=== PATIENT | male | born 1965 | race Caucasian/White ===

== ENCOUNTER 2016-04-19 05:21 | Inpatient (IN) | payer OTHER ==
[~2016-04-19] VITALS: Ht 195.6 cm; Wt 169.8 kg
--- OUTSIDE RECORDS SUMMARY | 2016-04-19 05:30 | XMS REPORT ---
Author Author NERIS OCHOA Organization [employer] Address Unknown Phone Unavailable Care Team Providers Care Bridges Supervisor Name Role Phone NERIS OCHOA CP Unavailable Allergies, Adverse Reactions, Alerts Substance Reaction Event Type N.K.D.A. Info Not Available Non Drug Allergy Problems Problem Type Condition Code Onset Dates Condition Status Assessment Puncture wound T14.8 Active Medications Medication Code System Code Instructions Start Date End Date Status Dosage Keflex [facility] [place]NOTE 2] [id number] 250 MG Orally Four times a day Jan 25, 2015 Feb 04, 2015 1 capsule Ibuprofen NDC 0 not defined Procedures Procedure Coding System Code Date TDAP (BOOSTRIX) CPT-4 22921 Jan 25, 2015 SINGLE IMMUNIZATION ADMIN CPT-4 71315 Jan 25, 2015 Office Visit, Est Pt., Level 3 CPT-4 21693 Jan 25, 2015 Vital Signs Date/Time: Jan 25, 2015 Temperature 97.6 F Weight 341.8 lbs Height 77 in BMI 40.53 Index Blood Pressure Diastolic 88 mmHg Blood Pressure Systolic 134 mmHg Cardiac Monitoring Heart Rate 60 bpm Results No Known Results Immunizations Vaccine Administration Date TDAP (BOOSTRIX) Jan 25, 2015 Summary Purpose [employer] Submission
[2016-04-19 06:14] LABS: BASOPHILS % (AUTO) 0 % (0-10); EOSINOPHILS % (AUTO) 1 % (0-10); LYMPHOCYTES # (AUTO) 0.5 X 10^3 (1.0-4.0); LYMPHOCYTES % (AUTO) 16 % (12-44); MEAN CORPUSCULAR HEMOGLOBIN 34 PG (25-34); MEAN CORPUSCULAR HGB CONC 35 G/DL (32-36); MEAN CORPUSCULAR VOLUME 96 FL (80-99); MONOCYTES % (AUTO) 1 % (0-12); NEUTROPHILS # (AUTO) 2.4 X 10^3 (1.8-7.8); NEUTROPHILS % (AUTO) 82 % (42-75); PLATELET COUNT 163 10^3/uL (130-400); RED BLOOD COUNT 4.72 10^6/uL (4.35-5.85); RED CELL DISTRIBUTION WIDTH 12.6 % (10.0-14.5); WHITE BLOOD COUNT 2.9 10^3/uL (4.3-11.0)
[2016-04-19] MEDS ORDERED: ONDANSETRON 4 MG/2 ML (SDV) Z0FRAN IVP ONE (06:15)
[2016-04-19] MEDS ORDERED: NS IV 1000 ML 1,000 ML IV SCH ×3 (06:15→09:45)
--- NOTE | 2016-04-19 06:18 | ED General ---
General Chief Complaint: Fever-Adult/Adol Stated Complaint: CHILLS FINGER INJ Nursing Triage Note: Pt c/o chills starting this morning upon arrival. During initial exam, pt begin c/o abd pain and begins dry heaving. No emesis noted. Nursing Sepsis Screen: Possible Sepsis Risk Source of Information: Patient, Family Exam Limitations: No Limitations History of Present Illness Time Seen by Provider: 06:14 Initial Comments This 50-year-old white male presents with complaint of chills and fever that began this morning with associated nausea and vomiting. The patient denies associated headache, stiff neck, productive cough, hematemesis, associated diarrhea, dysuria or frequency. His past medical history is essentially unremarkable. Patient has been on Rodriguez diet for the last week. At this point the patient is complaining primarily of his chills and moderate nausea. There is no localized abdominal pain. Allergies and Home Medications Allergies Coded Allergies: No Known Drug Allergies (Unverified , 04/19/16) Home Medications No Active Prescriptions or Reported Meds Constitutional: chills fever malaise EENTM: No ear pain, No throat pain, No vision loss Respiratory: No cough, No short of breath Cardiovascular: No chest pain Gastrointestinal: abdominal painNo diarrhea, nausea vomiting Genitourinary: No dysuria, No frequency Musculoskeletal: No back pain, No joint pain Skin: No rash Psychiatric/Neurological: No Symptoms Reported Hematologic/Lymphatic: No Symptoms Reported Immunological/Allergic: no symptoms reported Past Tfjcpyj-Rorvmk-Bwuwsa Hx Patient Social History Alcohol Use: Denies Use Recreational Drug Use: No Smoking Status: Never a Smoker Recent Foreign Travel: No Contact w/Someone Who Travel: No Recent Infectious Disease Expo: No Recent Hopitalizations: No Seasonal Allergies Seasonal Allergies: No Surgeries HX Surgeries: No Respiratory Hx Respiratory Disorders: No Cardiovascular Hx Cardiac Disorders: No Neurological Hx Neurological Disorders: No Reproductive System Hx Reproductive Disorders: No Genitourinary Hx Genitourinary Disorders: No Gastrointestinal Hx Gastrointestinal Disorders: No Musculoskeletal Hx Musculoskeletal Disorders: No Endocrine Hx Endocrine Disorders: No HEENT HX ENT Disorders: No Cancer Hx Cancer: No Psychosocial Hx Psychiatric Problems: No Integumentary HX Skin/Integumentary Disorder: No Blood Transfusions Hx Blood Disorders: No Reviewed Nursing Assessment Reviewed/Agree w Nursing PMH: Yes Physical Exam Vital Signs Vital Sign - Last 12Hours 04/19/16 05:33 Temp 102.5 Pulse 118 Resp 18 B/P 124/87 Pulse Ox 97 O2 Delivery Room Air Capillary Refill : Less Than 3 Seconds General Appearance: No Apparent Distress WD/WN Eyes: Bilateral Eye Normal Inspection, Bilateral Eye PERRL HEENT: Normal ENT Inspection Neck: Normal Inspection Respiratory: Chest Non Tender Lungs Clear Normal Breath Sounds Cardiovascular: Regular Rate, Rhythm No Edema No Gallop No Murmur Gastrointestinal: Normal Bowel Sounds Soft Tenderness (there is slight diffuse tenderness to palpation of the abdomen. No rebound was noted.) Neurologic/Psychiatric: Oriented x3 No Motor/Sensory Deficits Skin: Normal Color Warm/Dry Progress/Results/Core Measures Results/Orders Lab Results Laboratory Tests Test 04/19/16 05:49 04/19/16 08:04 04/19/16 08:50 Range/Units Alanine Aminotransferase (ALT/SGPT) 26 0-55 U/L Albumin 4.3 3.2-4.5 G/DL Alkaline Phosphatase 54 40-136 U/L Anion Gap 14 5-14 MMOL/L Aspartate Amino Transf (AST/SGOT) 23 5-34 U/L BUN/Creatinine Ratio 23 Basophils # (Auto) 0.0 0.0-0.1 10^3/uL Basophils (%) (Auto) 0 0-10 % Blood Urea Nitrogen 21 H 7-18 MG/DL Calcium Level 9.3 8.5-10.1 MG/DL Carbon Dioxide Level 18 L 21-32 MMOL/L Chloride Level 108 H 98-107 MMOL/L Creatinine 0.91 0.60-1.30 MG/DL Eosinophils # (Auto) 0.0 0.0-0.3 10^3/uL Eosinophils (%) (Auto) 1 0-10 % Estimat Glomerular Filtration Rate > 60 Glucose Level 98 70-105 MG/DL Hematocrit 45 40-54 % Hemoglobin 15.8 13.3-17.7 G/DL Lipase 20 8-78 U/L Lymphocytes # (Auto) 0.5 L 1.0-4.0 X 10^3 Lymphocytes (%) (Auto) 16 12-44 % Mean Corpuscular Hemoglobin 34 25-34 PG Mean Corpuscular Hemoglobin Concent 35 32-36 G/DL Mean Corpuscular Volume 96 80-99 FL Mean Platelet Volume 10.0 7.4-10.4 FL Monocytes # (Auto) 0.0 0.0-1.0 X 10^3 Monocytes (%) (Auto) 1 0-12 % Neutrophils # (Auto) 2.4 1.8-7.8 X 10^3 Neutrophils (%) (Auto) 82 H 42-75 % Platelet Count 163 130-400 10^3/uL Potassium Level 4.0 3.6-5.0 MMOL/L Red Blood Count 4.72 4.35-5.85 10^6/uL Red Cell Distribution Width 12.6 10.0-14.5 % Sodium Level 140 135-145 MMOL/L Total Bilirubin 1.1 H 0.1-1.0 MG/DL Total Protein 7.2 6.4-8.2 G/DL White Blood Count 2.9 L 4.3-11.0 10^3/uL Lactic Acid Level 1.23 0.50-2.00 MMOL/L Urine Bacteria NEGATIVE /HPF Urine Bilirubin NEGATIVE NEGATIVE Urine Casts PRESENT /LPF Urine Clarity VERY CLOUDY H Urine Color YELLOW Urine Crystals NONE /LPF Urine Culture Indicated NO Urine Glucose (UA) NEGATIVE NEGATIVE Urine Hyaline Casts 5-10 H /LPF Urine Ketones 2+ H NEGATIVE Urine Leukocyte Esterase NEGATIVE NEGATIVE Urine Mucus SMALL H /LPF Urine Nitrite NEGATIVE NEGATIVE Urine Protein 2+ H NEGATIVE Urine RBC 2-5 H /HPF Urine RBC (Auto) 3+ H NEGATIVE Urine Specific [place] 1.015 L 1.016-1.022 Urine Urobilinogen NORMAL NORMAL MG/DL Urine WBC NONE /HPF Urine pH 5 5-9 Micro Results Microbiology 04/19/16 Influenza Types A,B Antigen (JAMAAL) - Final, Complete My Orders Orders-MEJIA LOYA MD Cbc With Automated Diff (04/19/16 06:07) Comprehensive Metabolic Panel (04/19/16 06:07) Lipase (04/19/16 06:07) Ua Culture If Indicated (04/19/16 06:07) Ns Iv 1000 Ml (Sodium Chloride 0.9%) (04/19/16 06:15) Ondansetron Injection (Zofran Injectio (04/19/16 06:15) Saline Lock/Iv-Start (04/19/16 06:14) Influenza A And B Antigens (04/19/16 06:39) Ct Abdomen/Pelvis W (04/19/16 07:02) Blood Culture (04/19/16 07:02) Lactic Acid Analyzer (04/19/16 07:02) Fentanyl Injection (Sublimaze Injection (04/19/16 07:15) Ns Iv 1000 Ml (Sodium Chloride 0.9%) (04/19/16 07:15) Acetaminophen Tablet (Tylenol Tablet) (04/19/16 07:30) Iohexol Injection (Omnipaque 350 Mg/Ml 1 (04/19/16 08:30) Ns (Ivpb) (Sodium Chloride 0.9% Ivpb Bag (04/19/16 08:30) Medications Given in ED Current Medications Medications Dose Ordered Sig/Eric Route Start Time Stop Time Status Last Admin Dose Admin Acetaminophen 1,000 mg ONCE ONCE PO 04/19/16 07:30 04/19/16 07:31 DC 04/19/16 07:25 1,000 MG Fentanyl Citrate 50 mcg ONCE ONCE IVP 04/19/16 07:15 04/19/16 07:16 DC 04/19/16 07:14 50 MCG Iohexol 150 ml ONCE ONCE IV 04/19/16 08:30 04/19/16 08:48 DC 04/19/16 08:31 125 ML Ondansetron HCl 4 mg ONCE ONCE IVP 04/19/16 06:15 04/19/16 06:16 DC 04/19/16 06:16 4 MG Sodium Chloride 100 ml ONCE ONCE IV 04/19/16 08:30 04/19/16 08:48 DC 04/19/16 08:31 80 ML Vital Signs/I&O Vital Sign - Last 12Hours 04/19/16 04/19/16 05:33 07:14 Temp 102.5 102.5 Pulse 118 Resp 18 B/P 124/87 Pulse Ox 97 O2 Delivery Room Air Blood Pressure Mean: 99 Progress Note : Time: 07:04 Progress Note The patient's laboratory evaluation demonstrated a leukopenia. His bilirubin was minimally elevated. The patient developed progressive epigastric discomfort. He was still nauseated after 4 mg of Zofran IV. I'm concerned that this is not a simple viral gastroenteritis or food poisoning. I'm going to obtain a CT, lactate, and blood cultures. [address] of the abdomen and pelvis demonstrated acute sigmoid diverticulitis. 2 blood cultures were obtained. The patient's lactate was normal. After telephone consultation with Dr. MCKINNON the patient was admitted. IV Flagyl and Cipro were initiated. Departure Communication Time/Spoke to Admitting Phy: 09:[address] Mckinnon. Impression Impression: Primary Impression: Diverticulitis large intestine Qualified Code: K57.20 - Diverticulitis of large intestine with perforation and abscess without bleeding Disposition: ADMITTED INPATIENT Condition: Improved Departure-Patient Inst. Referrals: DIONICIO GALVAN DO (PCP) Primary Care Physician Scripts No Active Prescriptions or Reported Meds MEJIA LOYA MD Apr 19, 2016 06:17
[2016-04-19 06:31] LABS: ALANINE AMINOTRANSFERASE 26 U/L (0-55); ALBUMIN 4.3 G/DL (3.2-4.5); ANION GAP 14 MMOL/L (5-14); ASPARTATE AMINO TRANSFERASE 23 U/L (5-34); BILIRUBIN,TOTAL 1.1 MG/DL (0.1-1.0); BLOOD UREA NITROGEN 21 MG/DL (7-18); BUN/CREATININE RATIO 23; CALCIUM 9.3 MG/DL (8.5-10.1); CARBON DIOXIDE 18 MMOL/L (21-32); CHLORIDE 108 MMOL/L (98-107); CREATININE SERUM 0.91 MG/DL (0.60-1.30); GFR ESTIMATED > 60; GLUCOSE 98 MG/DL (70-105); LIPASE 20 U/L (8-78); SODIUM 140 MMOL/L (135-145); TOTAL PROTEIN 7.2 G/DL (6.4-8.2)
[2016-04-19] MEDS ORDERED: fentaNYL INJECTION 100 MCG/2 ML AMP IVP ONE (07:15)
[2016-04-19] MEDS ORDERED: ACETAMINOPHEN 500 MG TAB (TYLENOL) PO ONE (07:30)
[2016-04-19] MEDS ORDERED: NS 100 ML (IVPB) BAG IV ONE (08:30)
[2016-04-19] MEDS ORDERED: IOHEXOL 350 MG/ML 150 ML (OMNIPAQUE 350) VIAL IV ONE (08:30)
--- NOTE | 2016-04-19 09:10 | Diagnostic Imaging Report ---
PROCEDURE: CT abdomen and pelvis with contrast. TECHNIQUE: Multiple contiguous axial images were obtained through the abdomen and pelvis after administration of intravenous contrast. DATE: April 19, 2016. COMPARISON: None. INDICATION: 50-year-old male, abdominal pain, nausea, fever. FINDINGS: There are 2 separately noted due to 3 mm calcified left lower lobe pulmonary nodules likely relating to sequela of prior granulomatous disease. Additional visualized portions of the lung bases are grossly clear. The heart is not enlarged. There is no pericardial effusion. The liver is unremarkable in size and contour. There is a 4 mm low-density liver lesion on image 14 too small to characterize as well as too small to characterize low-density lesions in the right lobe of the liver on axial image 24 measuring up to approximately 7 and 4 mm in size respectively. There is also a very subtle 3 mm low-density lesion in the right lobe of the liver on image 25 too small to characterize. The gallbladder is unremarkable in appearance. There is no intrahepatic or extra hepatic bile duct dilation. There is no abnormal distention of the main pancreatic duct. Pancreatic parenchyma is unremarkable. The spleen is normal in size. The adrenal glands are unremarkable. Unremarkable appearance of the renal parenchyma. The urinary collecting systems are not distended. There is no identified renal or ureteral stone. The urinary bladder is unremarkable in appearance. There is a fat-containing left inguinal hernia. There is diverticulosis. There is wall thickening and adjacent inflammatory stranding at the level of the proximal sigmoid colon without identified pericolonic lymph node at this level. This likely relates to acute diverticulitis. The intestinal tract is not distended. The appendix is normal and best seen on axial image 64 and adjacent sequential images. There is no free intraperitoneal air. There is no drainable fluid collection. There is no large volume free pelvic fluid. There are atherosclerotic calcifications noted. There is no identified abnormally enlarged lymph node within the abdomen or pelvis which meets CT size criteria for adenopathy. There is no identified acute bony abnormality. IMPRESSION: CT ABDOMEN AND PELVIS. 1. Findings of the proximal sigmoid colon most suggestive of acute diverticulitis. No evidence of perforation or abscess. Dictated by: Dictated on workstation # [id number]
[2016-04-19 09:12] LABS: BILIRUBIN,URINE NEGATIVE (NEGATIVE); KETONES,URINE 2+ (NEGATIVE); LEUKOCYTE ESTERASE ,URINE NEGATIVE (NEGATIVE); NITRITE,URINE NEGATIVE (NEGATIVE); PH,URINE 5 (5-9); PROTEIN,URINE 2+ (NEGATIVE); UROBILINOGEN,URINE NORMAL (NORMAL)
[2016-04-19] MEDS ORDERED: metroNIDAZOLE 500MG/100ML IVPB 100 ML IV ONE (09:45)
--- NOTE | 2016-04-19 11:57 | History & Physicial ---
History of Present Illness History of Present Illness Reason for visit/HPI PT STATES THAT HE WAS IN GOOD HE[facility] UP UNTIL EARLY THIS MORNING. HE STATES THAT HE STARTED TO HAVE SIGNIFICANT ABDOMINAL PAIN IN HIS LEFT LOWER ABDOMEN. THE PATIENT STATES THAT FOR THE PAST WEEK HE HAS BEEN ON THE ATKINS DIET. HE ALSO REPORTS THAT HE HAS BEEN EATING POPCORN, QUITE A BIT OVER THE PAST FEW WEEKS PRIOR TO THE START OF THE ATKINS DIET. EMERGENCY DEPT REPORTS THAT HE HAD A FEVER AND CT SCAN SHOWED DIVERTICULITIS. Date of Admission Apr 19, 2016 at 09:35 I consulted on this patient on 04/19/16 11:57 Attending Physician Kar Paniagua DO Admitting Physician NABIL MATOS MD Consult Allergies and Home Medications Allergies Coded Allergies: No Known Drug Allergies (Unverified , 04/19/16) Home Medications No Active Prescriptions or Reported Meds Past Hqznegb-Fecmjf-Qqvbsc Hx Patient Social History Marrital Status: Living Status: LIVES AT HOME WITH SPOUSE. 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[employer]) Alcohol Use: Denies Use Recreational Drug Use: No Smoking Status: Former Smoker Type Used: Cigarettes 2nd Hand Smoke Exposure: No Physical Abuse Screen: No Sexual Abuse: No Recent Foreign Travel: No Contact w/other who traveled: No Recent Hopitalizations: No Recent Infectious Disease Expo: No Seasonal Allergies Seasonal Allergies: No Surgeries HX Surgeries: No Respiratory Hx Respiratory Disorders: No Cardiovascular Hx Cardiovascular Disorders: No Neurological Hx Neurological Disorders: No Reproductive System Hx Reproductive Disorders: No Sexually Transmitted Disease: No HIV/AIDS: No Genitourinary Hx Genitourinary Disorders: No Gastrointestinal Hx Gastrointestinal Disorders: No Musculoskeletal Hx Musculoskeletal Disorders: No Endocrine Hx Endocrine Disorders: No HEENT HX ENT Disorders: No Cancer Hx Cancer: No Psychosocial Hx Psychiatric Problems: No Integumentary HX Skin/Integumentary Disorder: No Blood Transfusions Hx Blood Disorders: No Reviewed Nursing Assessment Reviewed/Agree w Nursing PMH: Yes Family Medical History Significant Family History: Hypertension Constitutional: chills diaphoresis fever EENTM: No hoarseness, No mouth pain, No throat pain Respiratory: No cough, No dyspnea on exertion, No short of breath Cardiovascular: No chest pain, No palpitations Gastrointestinal: abdominal pain (LLQ)No constipation, No loss of appetite Genitourinary: no symptoms reported Musculoskeletal: back pain Skin: No lesions, No rash Psychiatric/Neurological: Denies Anxiety, Denies Depressed, Weakness All Other Systems Reviewed Negative Unless Noted: Yes Physical Exam Vital Signs Vital Sign - Last 12Hours 04/19/16 05:33 Temp 102.5 Pulse 118 Resp 18 B/P 124/87 Pulse Ox 97 O2 Delivery Room Air Capillary Refill : Less Than 3 Seconds General Appearance: No Apparent Distress WD/WN Eyes: Bilateral Eye EOMI, Bilateral Eye Normal Inspection, Bilateral Eye PERRL HEENT: PERRL/EOMI Pharynx Normal Neck: Full Range of Motion Supple Respiratory: Chest Non Tender Lungs Clear Normal Breath Sounds No Accessory Muscle Use Cardiovascular: Regular Rate, Rhythm No Edema Gastrointestinal: Normal Bowel Sounds No Organomegaly No Pulsatile Mass Non Tender Soft Rectal: Deferred Extremity: Normal Capillary Refill Normal Range of Motion Non Tender No Calf Tenderness No Pedal Edema Neurologic/Psychiatric: Alert Oriented x3 No Motor/Sensory Deficits Normal Mood/Affect pharmacy technician inpatient II-XII Norm as Tested Skin: Normal Color Warm/Dry Lymphatic: No Adenopathy Assessment/Plan Assessment and Plan DIVERTICULITIS ABDOMINAL PAIN NAUSEA FEVER LEUKOPENIA DIVERTICULITIS WITH ABDOMINAL PAIN AND FEVER - CONTINUE WITH IV ANTIBIOTICS, FLAGYL AND CIPRO - MONITOR SYMPTOMS, LIQUID DIET. WILL NEED DIETARY FOR PATIENT TO BE ADVISED ON FOODS TO AVOID. LEUKOPENIA - MONITOR WBC'S. FEVER - TREAT WITH TYLENOL. Admission Diagnosis DIVERTICULITIS ABDOMINAL PAIN NAUSEA FEVER LEUKOPENIA NABIL MATOS MD Apr 19, 2016 11:57
[2016-04-19 12:00] VITALS: BP 116/70
[2016-04-19] MEDS: NS IV 1000 ML 1,000 ML IV SCH ×2 (12:00→23:21)
[2016-04-19] MEDS ORDERED: ONDANSETRON 4 MG/2 ML (SDV) Z0FRAN IV PRN (12:15)
[2016-04-19] MEDS ORDERED: fentaNYL INJECTION 100 MCG/2 ML AMP IV PRN (12:15)
[2016-04-19] MEDS: CIPROFLOXACIN IV 400MG/200ML 200 ML IV SCH ×2 (12:20→23:21)
[2016-04-19] MEDS: IBUPROFEN 800 MG (MOTRIN) TAB PO PRN (12:25)
[2016-04-19 16:00] VITALS: BP 110/70
[2016-04-19] MEDS: metroNIDAZOLE 500MG/100ML IVPB 100 ML IV SCH (17:53)
[2016-04-19] MEDS: ACETAMINOPHEN 500 MG TAB (TYLENOL) PO PRN (18:40)
[2016-04-19 20:00] VITALS: BP 104/64
[2016-04-20] VITALS (7 sets, daily range): BP systolic 104–136; BP diastolic 55–84
[2016-04-20] MEDS: metroNIDAZOLE 500MG/100ML IVPB 100 ML IV SCH ×2 (01:51→11:49)
[2016-04-20] MEDS: IBUPROFEN 800 MG (MOTRIN) TAB PO PRN ×2 (04:53→13:01)
[2016-04-20 05:55] LABS: BASOPHILS % (AUTO) 0 % (0-10); EOSINOPHILS % (AUTO) 0 % (0-10); LYMPHOCYTES # (AUTO) 0.3 X 10^3 (1.0-4.0); LYMPHOCYTES % (AUTO) 3 % (12-44); MEAN CORPUSCULAR HEMOGLOBIN 34 PG (25-34); MEAN CORPUSCULAR HGB CONC 35 G/DL (32-36); MEAN CORPUSCULAR VOLUME 98 FL (80-99); MEAN PLATELET VOLUME 10.2 FL (7.4-10.4); MONOCYTES # (AUTO) 0.5 X 10^3 (0.0-1.0); MONOCYTES % (AUTO) 6 % (0-12); NEUTROPHILS # (AUTO) 7.3 X 10^3 (1.8-7.8); NEUTROPHILS % (AUTO) 91 % (42-75); PLATELET COUNT 122 10^3/uL (130-400); RED BLOOD COUNT 4.07 10^6/uL (4.35-5.85)
[2016-04-20 06:10] LABS: BAND NEUTROPHILS 12 %; BASOPHILS % (MANUAL) 0 %; EOSINOPHILS % (MANUAL) 2 %; LYMPHOCYTES % (MANUAL) 1 %; NEUTROPHILS % (MANUAL) 80 %
[2016-04-20 06:49] LABS: ALANINE AMINOTRANSFERASE 24 U/L (0-55); ALBUMIN 3.7 G/DL (3.2-4.5); ANION GAP 10 MMOL/L (5-14); ASPARTATE AMINO TRANSFERASE 24 U/L (5-34); BILIRUBIN,TOTAL 1.5 MG/DL (0.1-1.0); BLOOD UREA NITROGEN 12 MG/DL (7-18); BUN/CREATININE RATIO 14; CALCIUM 8.6 MG/DL (8.5-10.1); CARBON DIOXIDE 19 MMOL/L (21-32); CHLORIDE 111 MMOL/L (98-107); CREATININE SERUM 0.84 MG/DL (0.60-1.30); GFR ESTIMATED > 60; GLUCOSE 112 MG/DL (70-105); POTASSIUM 3.8 MMOL/L (3.6-5.0); SODIUM 140 MMOL/L (135-145); TOTAL PROTEIN 6.1 G/DL (6.4-8.2)
[2016-04-20] MEDS ORDERED: CATHETER FLUSH 10 ML SYR IV PRN (07:45)
--- NOTE | 2016-04-20 07:48 | Progress Note (SOAP) ---
Subjective Subjective/Events-last exam patient feeling much better today. Patient not having any abdominal pain or back pain. White blood cell count 8000 better than 2000 the other day . Temperature 99.5 this morning. Patient on liquid diet. Abdomen is soft Objective Exam Vital Signs Date Time Temp Pulse Resp B/P Pulse Ox O2 Delivery O2 Flow Rate FiO2 04/20/16 04:00 99.5 78 18 104/56 97 Room Air 04/20/16 00:00 98.3 69 18 117/55 98 Room Air 04/19/16 20:00 97.8 74 18 104/64 95 Room Air 04/19/16 16:00 98.6 76 20 110/70 94 Room Air 04/19/16 14:30 100.1 04/19/16 12:00 101.5 89 18 116/70 94 Room Air 04/19/16 11:00 102.5 96 18 97 I & O 04/20/16 07:00 Intake Total 4880 ml Output Total 1850 ml Balance 3030 ml Capillary Refill : Less Than 3 Seconds General Appearance: No Apparent Distress WD/WN HEENT: Normal ENT Inspection Neck: Full Range of Motion Normal Inspection Respiratory: Chest Non Tender Lungs Clear Normal Breath Sounds No Accessory Muscle Use No Respiratory Distress Cardiovascular: Regular Rate, Rhythm No Murmur Gastrointestinal: non tender soft Results Lab Laboratory Tests 04/20/16 05:36 Laboratory Tests 04/19/16 08:04: Lactic Acid Level 1.23 04/19/16 08:50: Urine Bacteria NEGATIVE, Urine Bilirubin NEGATIVE, Urine Casts PRESENT, Urine Clarity VERY CLOUDYH, Urine Color YELLOW, Urine Crystals NONE, Urine Culture Indicated NO, Urine Glucose (UA) NEGATIVE, Urine Hyaline Casts 5-10H, Urine Ketones 2+H, Urine Leukocyte Esterase NEGATIVE, Urine Mucus SMALLH, Urine Nitrite NEGATIVE, Urine Protein 2+H, Urine RBC 2-5H, Urine RBC (Auto) 3+H, Urine Specific [place] 1.015L, Urine Urobilinogen NORMAL, Urine WBC NONE, Urine pH 5 04/20/16 05:36: Lactic Acid Level 0.75, Alanine Aminotransferase (ALT/SGPT) 24, Albumin 3.7, Alkaline Phosphatase 42, Anion Gap 10, Aspartate Amino Transf (AST/SGOT) 24, BUN /Creatinine Ratio 14, Band Neutrophils 12, Basophils # (Auto) 0.0, Basophils % ( Manual) 0, Basophils (%) (Auto) 0, Blood Morphology Comment NORMAL, Blood Urea Nitrogen 12, Calcium Level 8.6, Carbon Dioxide Level 19L, Chloride Level 111H, Creatinine 0.84, Eosinophils # (Auto) 0.0, Eosinophils % (Manual) 2, Eosinophils (%) (Auto) 0, Estimat Glomerular Filtration Rate > 60, Glucose Level 112H, Hematocrit 40, Hemoglobin 13.8, Lymphocytes # (Auto) 0.3L, Lymphocytes % (Manual) 1, Lymphocytes (%) (Auto) 3L, Mean Corpuscular Hemoglobin 34, Mean Corpuscular Hemoglobin Concent 35, Mean Corpuscular Volume 98, Mean Platelet Volume 10.2, Monocytes # (Auto) 0.5, Monocytes % (Manual) 5, Monocytes (%) (Auto) 6, Neutrophils # (Auto) 7.3, Neutrophils % (Manual) 80, Neutrophils (%) (Auto) 91H, Platelet Count 122L, Potassium Level 3.8, Red Blood Count 4.07L, Red Cell Distribution Width 13.0, Sodium Level 140, Total Bilirubin 1.5H, Total Protein 6.1L, White Blood Count 8.0 Microbiology 04/19/16 Influenza Types A,B Antigen (JAMAAL) - Final, Complete Assessment/Plan Assessment/Plan Assess & Plan/Chief Complaint acute diverticulitis. Abdominal pain. Nausea. Fever. Leukopenia resolved Clinical Quality Measures DVT/VTE Risk/Contraindication: Risk Factor Score Per Nursin RFS Level Per Nursing on Admit: 2=Moderate DIONICIO GALVAN DO Apr 20, 2016 07:48
[2016-04-20] MEDS ORDERED: diphenhydrAMINE 25 MG TAB (BENADRYL) PO PRN (10:00)
[2016-04-20] MEDS: CIPROFLOXACIN IV 400MG/200ML 200 ML IV SCH (10:39)
[2016-04-20] MEDS: NS IV 1000 ML 1,000 ML IV SCH ×2 (10:40→15:49)
--- NOTE | 2016-04-20 15:25 | Consultation ---
History of Present Illness History of Present Illness Patient Consulted On(krzysztof/time) 04/20/16 15:23 Reason for Visit: acute left lower quadrant abdominal pain due to sigmoid diverticulitis History of Present Illness sudden onset of pain over the left lower quadrant leading to an emergency room visit. CT scan shows uncomplicated sigmoid diverticulitis. Family history of colon cancer in his father Allergies and Home Medications Allergies Coded Allergies: No Known Drug Allergies (Unverified , 04/19/16) Home Medications No Active Prescriptions or Reported Meds Past Vqbjxuw-Nmqfcl-Rmewge Hx Patient Social History Alcohol Use: Denies Use Recreational Drug Use: No Smoking Status: Former Smoker Type Used: Cigarettes 2nd Hand Smoke Exposure: No Recent Foreign Travel: No Contact w/Someone Who Travel: No Recent Infectious Disease Expo: No Recent Hopitalizations: No Physical Abuse Screen: No Sexual Abuse: No Immunizations Up To Date PED Vaccines UTD: No Date of Influenza Vaccine: Dec 17, 2015 Seasonal Allergies Seasonal Allergies: No Surgeries HX Surgeries: No Respiratory Hx Respiratory Disorders: No Cardiovascular Hx Cardiac Disorders: No Neurological Hx Neurological Disorders: No Reproductive System Hx Reproductive Disorders: No Sexually Transmitted Disease: No HIV/AIDS: No Genitourinary Hx Genitourinary Disorders: No Gastrointestinal Hx Gastrointestinal Disorders: No Musculoskeletal Hx Musculoskeletal Disorders: No Endocrine Hx Endocrine Disorders: No HEENT HX ENT Disorders: No Cancer Hx Cancer: No Psychosocial Hx Psychiatric Problems: No Integumentary HX Skin/Integumentary Disorder: No Blood Transfusions Hx Blood Disorders: No Reviewed Nursing Assessment Reviewed/Agree w Nursing PMH: Yes Family Medical History Significant Family History: Hypertension Family Medial History: Cardiovascular disease G8 BROTHER Diabetes mellitus 19 MOTHER FH: liver cancer 19 FATHER Hypertension G8 BROTHER LIVER CAN Review of Systems-General EENTM: no symptoms reported Respiratory: no symptoms reported Cardiovascular: no symptoms reported Gastrointestinal: LLQ abdominal pain (LLQ) Genitourinary: no symptoms reported Musculoskeletal: no symptoms reported Skin: no symptoms reported Physical Exam-General Problems Physical Exam Vital Signs Vital Sign - Last 12Hours 04/19/16 05:33 Temp 102.5 Pulse 118 Resp 18 B/P 124/87 Pulse Ox 97 O2 Delivery Room Air Capillary Refill : Less Than 3 Seconds General Appearance: no apparent distress HEENT: PERRL/EOMI Neck: full range of motion Respiratory: lungs clear Cardiovascular: regular rate, rhythm Gastrointestinal: soft tenderness Rectal: deferred Back: normal inspection Comments mild tenderness over the left lower quadrant no evidence of peritonitis Assessment/Plan Assessment/Plan Admission Diagnosis/Plan sigmoid diverticulitis we'll continue IV antibiotics and bowel rest. Clinical Quality Measures DVT/VTE Risk/Contraindication: Risk Factor Score Per Nursin RFS Level Per Nursing on Admit: 2=Moderate CHAN QUINONEZ MD Apr 20, 2016 3:25 pm
[2016-04-20] MEDS: ACETAMINOPHEN 500 MG TAB (TYLENOL) PO PRN (15:57)
[2016-04-20] MEDS ORDERED: PIPERACILLIN/TAZOBACTAM 4.5 GM/NS 100 ML IV NR ×2 (16:00)
[2016-04-20] MEDS ORDERED: PIPERACILLIN SODIUM/TAZOBACTAM 4.5 GM in NS (IVPB) 100 ML IV SCH (18:00)
[2016-04-20] MEDS: PIPERACILLIN/TAZOBACTAM 4.5 GM/NS 100 ML IVPB IV SCH ×2 (22:20)
[2016-04-21] MEDS: NS IV 1000 ML 1,000 ML IV SCH (01:00)
[2016-04-21 04:00] VITALS: BP 118/56
[2016-04-21] MEDS: PIPERACILLIN/TAZOBACTAM 4.5 GM/NS 100 ML IVPB IV SCH ×6 (04:52→21:00)
[2016-04-21 05:35] LABS: BASOPHILS % (AUTO) 0 % (0-10); EOSINOPHILS # (AUTO) 0.1 10^3/uL (0.0-0.3); EOSINOPHILS % (AUTO) 3 % (0-10); LYMPHOCYTES # (AUTO) 0.5 X 10^3 (1.0-4.0); LYMPHOCYTES % (AUTO) 16 % (12-44); MEAN CORPUSCULAR HEMOGLOBIN 34 PG (25-34); MEAN CORPUSCULAR HGB CONC 34 G/DL (32-36); MEAN CORPUSCULAR VOLUME 100 FL (80-99); MONOCYTES # (AUTO) 0.4 X 10^3 (0.0-1.0); MONOCYTES % (AUTO) 12 % (0-12); NEUTROPHILS # (AUTO) 2.2 X 10^3 (1.8-7.8); NEUTROPHILS % (AUTO) 69 % (42-75); PLATELET COUNT 88 10^3/uL (130-400); RED BLOOD COUNT 3.56 10^6/uL (4.35-5.85); RED CELL DISTRIBUTION WIDTH 13.1 % (10.0-14.5); WHITE BLOOD COUNT 3.2 10^3/uL (4.3-11.0)
[2016-04-21 06:13] LABS: ALANINE AMINOTRANSFERASE 20 U/L (0-55); ALBUMIN 3.1 G/DL (3.2-4.5); ANION GAP 9 MMOL/L (5-14); ASPARTATE AMINO TRANSFERASE 17 U/L (5-34); BILIRUBIN,TOTAL 0.7 MG/DL (0.1-1.0); BLOOD UREA NITROGEN 5 MG/DL (7-18); BUN/CREATININE RATIO 6; CALCIUM 8.1 MG/DL (8.5-10.1); CARBON DIOXIDE 21 MMOL/L (21-32); CHLORIDE 112 MMOL/L (98-107); CREATININE SERUM 0.81 MG/DL (0.60-1.30); GFR ESTIMATED > 60; GLUCOSE 109 MG/DL (70-105); POTASSIUM 3.7 MMOL/L (3.6-5.0); SODIUM 142 MMOL/L (135-145); TOTAL PROTEIN 5.2 G/DL (6.4-8.2)
--- NOTE | 2016-04-21 07:40 | Progress Note (SOAP) ---
Subjective Subjective/Events-last exam acute diverticulitis. Patient afebrile. Patient on liquid diet and resting the bowel. No abdominal pain. White blood cell 3.2 slightly low platelet count coming down to 88,000 we'll monitor. Hemoglobin 12 decreased and hematocrit 36 decreased Objective Exam Vital Signs Date Time Temp Pulse Resp B/P Pulse Ox O2 Delivery O2 Flow Rate FiO2 04/21/16 04:00 96.8 58 16 118/56 99 Room Air 04/20/16 23:58 97.9 64 18 124/68 95 Room Air 04/20/16 21:00 Room Air 04/20/16 19:08 98.4 59 18 125/82 95 Room Air 04/20/16 15:50 98.4 64 16 136/84 98 Room Air 04/20/16 12:00 97.7 67 20 105/66 96 Room Air 04/20/16 09:00 Room Air 04/20/16 08:00 98.1 74 18 113/73 95 Room Air I & O 04/21/16 07:00 Intake Total 7157 ml Output Total 5025 ml Balance 2132 ml Capillary Refill : Less Than 3 Seconds General Appearance: No Apparent Distress WD/WN HEENT: Normal ENT Inspection Neck: Normal Inspection Non Tender Respiratory: Chest Non Tender Lungs Clear Normal Breath Sounds No Accessory Muscle Use No Respiratory Distress Cardiovascular: Regular Rate, Rhythm No Murmur Gastrointestinal: non tender soft Results Lab Laboratory Tests 04/21/16 04:20 Laboratory Tests 04/21/16 04:20: Alanine Aminotransferase (ALT/SGPT) 20, Albumin 3.1L, Alkaline Phosphatase 37L, Anion Gap 9, Aspartate Amino Transf (AST/SGOT) 17, BUN/Creatinine Ratio 6, Basophils # (Auto) 0.0, Basophils (%) (Auto) 0, Blood Urea Nitrogen 5L, Calcium Level 8.1L, Carbon Dioxide Level 21, Chloride Level 112H, Creatinine 0.81, Eosinophils # (Auto) 0.1, Eosinophils (%) (Auto) 3, Estimat Glomerular Filtration Rate > 60, Glucose Level 109H, Hematocrit 36L, Hemoglobin 12.0L, Lymphocytes # (Auto) 0.5L, Lymphocytes (%) (Auto) 16, Mean Corpuscular Hemoglobin 34, Mean Corpuscular Hemoglobin Concent 34, Mean Corpuscular Volume 100H, Mean Platelet Volume 11.0H, Monocytes # (Auto) 0.4, Monocytes (%) (Auto) 12, Neutrophils # (Auto) 2.2, Neutrophils (%) (Auto) 69, Platelet Count 88L, Potassium Level 3.7, Red Blood Count 3.56L, Red Cell Distribution Width 13.1, Sodium Level 142, Total Bilirubin 0.7, Total Protein 5.2L, White Blood Count 3.2L Microbiology 04/19/16 Blood Culture - Preliminary, Resulted No growth 04/19/16 Influenza Types A,B Antigen (JAMAAL) - Final, Complete Assessment/Plan Assessment/Plan Assess & Plan/Chief Complaint acute diverticulitis. Abdominal pain. Nausea. Fever. Leukopenia resolved. . 04/21/16. Acute diverticulitis. Leukopenia. Thrombocytopenia. Platelet count 88,000. Patient feeling better today Clinical Quality Measures DVT/VTE Risk/Contraindication: Risk Factor Score Per Nursin RFS Level Per Nursing on Admit: 2=Moderate DIONICIO GALVAN DO Apr 21, 2016 07:40
[2016-04-21 08:00] VITALS: BP 148/83
--- NOTE | 2016-04-21 09:20 | Progress Note-Standard ---
Standard Progress Note Progress Notes/Assess & Plan Progress/Assessment & Plan 04/21/16: Abdominal pain improved. Leukopenic. No abdominal tenderness on exam. Could advance diet, continue IV antibiotics for 24 more hours Final Diagnosis Sig Diverticulitis CHAN QUINONEZ MD Apr 21, 2016 9:20 am
[2016-04-21 12:00] VITALS: BP 136/68
[2016-04-21] MEDS: ACETAMINOPHEN 500 MG TAB (TYLENOL) PO PRN ×2 (13:53→20:28)
[2016-04-21 16:27] VITALS: BP 137/76
[2016-04-21 20:45] VITALS: BP 143/87
[2016-04-21 23:00] VITALS: BP 108/55
[2016-04-22 05:00] LABS: BASOPHILS % (AUTO) 0 % (0-10); EOSINOPHILS # (AUTO) 0.1 10^3/uL (0.0-0.3); EOSINOPHILS % (AUTO) 3 % (0-10); LYMPHOCYTES # (AUTO) 0.8 X 10^3 (1.0-4.0); LYMPHOCYTES % (AUTO) 29 % (12-44); MEAN CORPUSCULAR HEMOGLOBIN 33 PG (25-34); MEAN CORPUSCULAR HGB CONC 33 G/DL (32-36); MEAN CORPUSCULAR VOLUME 100 FL (80-99); MEAN PLATELET VOLUME 10.9 FL (7.4-10.4); MONOCYTES # (AUTO) 0.2 X 10^3 (0.0-1.0); MONOCYTES % (AUTO) 8 % (0-12); NEUTROPHILS # (AUTO) 1.7 X 10^3 (1.8-7.8); NEUTROPHILS % (AUTO) 60 % (42-75); PLATELET COUNT 101 10^3/uL (130-400); RED BLOOD COUNT 3.69 10^6/uL (4.35-5.85); WHITE BLOOD COUNT 2.8 10^3/uL (4.3-11.0)
[2016-04-22] MEDS: PIPERACILLIN/TAZOBACTAM 4.5 GM/NS 100 ML IVPB IV SCH ×4 (05:10→15:16)
[2016-04-22 05:14] LABS: ALANINE AMINOTRANSFERASE 25 U/L (0-55); ALBUMIN 3.2 G/DL (3.2-4.5); ANION GAP 10 MMOL/L (5-14); ASPARTATE AMINO TRANSFERASE 19 U/L (5-34); BILIRUBIN,TOTAL 0.5 MG/DL (0.1-1.0); BLOOD UREA NITROGEN 6 MG/DL (7-18); BUN/CREATININE RATIO 7; CALCIUM 8.6 MG/DL (8.5-10.1); CARBON DIOXIDE 22 MMOL/L (21-32); CHLORIDE 110 MMOL/L (98-107); CREATININE SERUM 0.83 MG/DL (0.60-1.30); GFR ESTIMATED > 60; GLUCOSE 102 MG/DL (70-105); POTASSIUM 3.8 MMOL/L (3.6-5.0); SODIUM 142 MMOL/L (135-145); TOTAL PROTEIN 5.5 G/DL (6.4-8.2)
--- NOTE | 2016-04-22 07:48 | Progress Note (SOAP) ---
Subjective Subjective/Events-last exam acute diverticulitis. Leukopenia. Thrombocytopenia. Patient feeling much better today. Patient not having any abdominal pain or back pain. Patient able to eat this morning. Patient had a bowel movement. Patient in the right direction Objective Exam Vital Signs Date Time Temp Pulse Resp B/P Pulse Ox O2 Delivery O2 Flow Rate FiO2 04/21/16 23:00 98.4 61 18 108/55 96 Room Air 04/21/16 20:45 99.0 64 20 143/87 97 Room Air 04/21/16 20:20 Room Air 04/21/16 16:27 99.5 62 20 137/76 98 Room Air 04/21/16 12:00 99.0 64 20 136/68 96 Room Air 04/21/16 09:41 Room Air 04/21/16 08:00 98.4 61 18 148/83 97 Room Air I & O 04/22/16 07:00 Intake Total 2065 ml Output Total 2675 ml Balance -610 ml Capillary Refill : Less Than 3 Seconds General Appearance: No Apparent Distress WD/WN HEENT: Normal ENT Inspection Neck: Full Range of Motion Normal Inspection Non Tender Respiratory: Chest Non Tender Lungs Clear Normal Breath Sounds No Accessory Muscle Use No Respiratory Distress Cardiovascular: Regular Rate, Rhythm No Murmur Gastrointestinal: non tender soft Results Lab Laboratory Tests 04/22/16 04:25 Laboratory Tests 04/22/16 04:25: Alanine Aminotransferase (ALT/SGPT) 25, Albumin 3.2, Alkaline Phosphatase 52, Anion Gap 10, Aspartate Amino Transf (AST/SGOT) 19, BUN/Creatinine Ratio 7, Basophils # (Auto) 0.0, Basophils (%) (Auto) 0, Blood Urea Nitrogen 6L, Calcium Level 8.6, Carbon Dioxide Level 22, Chloride Level 110H, Creatinine 0.83, Eosinophils # (Auto) 0.1, Eosinophils (%) (Auto) 3, Estimat Glomerular Filtration Rate > 60, Glucose Level 102, Hematocrit 37L, Hemoglobin 12.2L, Lymphocytes # (Auto) 0.8L, Lymphocytes (%) (Auto) 29, Mean Corpuscular Hemoglobin 33, Mean Corpuscular Hemoglobin Concent 33, Mean Corpuscular Volume 100H, Mean Platelet Volume 10.9H, Monocytes # (Auto) 0.2, Monocytes (%) (Auto) 8 , Neutrophils # (Auto) 1.7L, Neutrophils (%) (Auto) 60, Platelet Count 101L, Potassium Level 3.8, Red Blood Count 3.69L, Red Cell Distribution Width 13.0, Sodium Level 142, Total Bilirubin 0.5, Total Protein 5.5L, White Blood Count 2.8L Microbiology 04/19/16 Blood Culture - Preliminary, Resulted No growth 04/19/16 Influenza Types A,B Antigen (JAMAAL) - Final, Complete Assessment/Plan Assessment/Plan Assess & Plan/Chief Complaint acute diverticulitis. Abdominal pain. Nausea. Fever. Leukopenia resolved. . 04/21/16. Acute diverticulitis. Leukopenia. Thrombocytopenia. Platelet count 88,000. Patient feeling better today. . 04/22/16 acute diverticulitis better. Leukopenia. Thrombocytopenia. Platelet count 101,000 from 88,000. White blood cell count 2.8. Consult with hematology. Clinical Quality Measures DVT/VTE Risk/Contraindication: Risk Factor Score Per Nursin RFS Level Per Nursing on Admit: 2=Moderate DIONICIO GALVAN DO Apr 22, 2016 07:48
[2016-04-22 08:00] VITALS: BP 161/89
--- NOTE | 2016-04-22 12:03 | Progress Note-Standard ---
Standard Progress Note Progress Notes/Assess & Plan Progress/Assessment & Plan 04/21/16: Abdominal pain improved. Leukopenic. No abdominal tenderness on exam. Could advance diet, continue IV antibiotics for 24 more hours 04/22/16: Leucopenia persists. Abdoain and tenderness resolved. Home with an office f/U in 2 weeks. Outpatient colonoscopy Final Diagnosis Sigmoid diverticulitis CHAN QUINONEZ MD Apr 22, 2016 12:03 pm
[2016-04-22] MEDS ORDERED: CIPR-225 PO (13:49)
[2016-04-22] MEDS ORDERED: METR500T PO (13:49)
[2016-04-22 17:00] VITALS: BP 161/89
--- NOTE | 2016-04-27 07:24 | Discharge Summary ---
Diagnosis/Chief Complaint Date of Admission Apr 19, 2016 at 09:35 Date of Discharge Apr 22, 2016 at 17:10 Discharge Date: Apr 22, 2016 Discharge Time: 1600 Admission Diagnosis Admission Diagnosis DIVERTICULITIS ABDOMINAL PAIN NAUSEA FEVER LEUKOPENIA Discharge Diagnosis diverticulitis of large intestine without perforation or abscess without bleeding. Personal history of nicotine dependence. Thrombocytopenia. Hypertension. Leukopenia Discharge Summary Consultations surgery consult Discharge Physical Examination Allergies: Coded Allergies: No Known Drug Allergies (Unverified , 04/19/16) Vitals & I&Os Vital Signs Date Time Temp Pulse Resp B/P Pulse Ox O2 Delivery O2 Flow Rate FiO2 04/22/16 17:00 58 20 161/89 97 04/22/16 09:00 Room Air 04/22/16 08:00 98.4 Hospital Course Labs (last 24 hrs) Laboratory Tests 04/19/16 05:49: Alanine Aminotransferase (ALT/SGPT) 26, Albumin 4.3, Alkaline Phosphatase 54, Anion Gap 14, Aspartate Amino Transf (AST/SGOT) 23, BUN/Creatinine Ratio 23, Basophils # (Auto) 0.0, Basophils (%) (Auto) 0, Blood Urea Nitrogen 21H, Calcium Level 9.3, Carbon Dioxide Level 18L, Chloride Level 108H, Creatinine 0.91, Eosinophils # (Auto) 0.0, Eosinophils (%) (Auto) 1, Estimat Glomerular Filtration Rate > 60, Glucose Level 98, Hematocrit 45, Hemoglobin 15.8, Lipase 20, Lymphocytes # (Auto) 0.5L, Lymphocytes (%) (Auto) 16, Mean Corpuscular Hemoglobin 34, Mean Corpuscular Hemoglobin Concent 35, Mean Corpuscular Volume 96, Mean Platelet Volume 10.0, Monocytes # (Auto) 0.0, Monocytes (%) (Auto) 1, Neutrophils # (Auto) 2.4, Neutrophils (%) (Auto) 82H, Platelet Count 163, Potassium Level 4.0, Red Blood Count 4.72, Red Cell Distribution Width 12.6, Sodium Level 140, Total Bilirubin 1.1H, Total Protein 7.2, White Blood Count 2.9L 04/19/16 08:04: Lactic Acid Level 1.23 04/19/16 08:50: Urine Bacteria NEGATIVE, Urine Bilirubin NEGATIVE, Urine Casts PRESENT, Urine Clarity VERY CLOUDYH, Urine Color YELLOW, Urine Crystals NONE, Urine Culture Indicated NO, Urine Glucose (UA) NEGATIVE, Urine Hyaline Casts 5-10H, Urine Ketones 2+H, Urine Leukocyte Esterase NEGATIVE, Urine Mucus SMALLH, Urine Nitrite NEGATIVE, Urine Protein 2+H, Urine RBC 2-5H, Urine RBC (Auto) 3+H, Urine Specific [place] 1.015L, Urine Urobilinogen NORMAL, Urine WBC NONE, Urine pH 5 04/20/16 05:36: Alanine Aminotransferase (ALT/SGPT) 24, Albumin 3.7, Alkaline Phosphatase 42, Anion Gap 10, Aspartate Amino Transf (AST/SGOT) 24, BUN/Creatinine Ratio 14, Basophils # (Auto) 0.0, Basophils (%) (Auto) 0, Blood Urea Nitrogen 12, Calcium Level 8.6, Carbon Dioxide Level 19L, Chloride Level 111H, Creatinine 0.84, Eosinophils # (Auto) 0.0, Eosinophils (%) (Auto) 0, Estimat Glomerular Filtration Rate > 60, Glucose Level 112H, Hematocrit 40, Hemoglobin 13.8, Lymphocytes # (Auto) 0.3L, Lymphocytes (%) (Auto) 3L, Mean Corpuscular Hemoglobin 34, Mean Corpuscular Hemoglobin Concent 35, Mean Corpuscular Volume 98, Mean Platelet Volume 10.2, Monocytes # (Auto) 0.5, Monocytes (%) (Auto) 6, Neutrophils # (Auto) 7.3, Neutrophils (%) (Auto) 91H, Platelet Count 122L, Potassium Level 3.8, Red Blood Count 4.07L, Red Cell Distribution Width 13.0, Sodium Level 140, Total Bilirubin 1.5H, Total Protein 6.1L, White Blood Count 8.0, Lactic Acid Level 0.75, Band Neutrophils 12, Basophils % (Manual) 0, Blood Morphology Comment NORMAL, Eosinophils % (Manual) 2, Lymphocytes % (Manual) 1, Monocytes % (Manual) 5, Neutrophils % (Manual) 80 04/21/16 04:20: Alanine Aminotransferase (ALT/SGPT) 20, Albumin 3.1L, Alkaline Phosphatase 37L, Anion Gap 9, Aspartate Amino Transf (AST/SGOT) 17, BUN/Creatinine Ratio 6, Basophils # (Auto) 0.0, Basophils (%) (Auto) 0, Blood Urea Nitrogen 5L, Calcium Level 8.1L, Carbon Dioxide Level 21, Chloride Level 112H, Creatinine 0.81, Eosinophils # (Auto) 0.1, Eosinophils (%) (Auto) 3, Estimat Glomerular Filtration Rate > 60, Glucose Level 109H, Hematocrit 36L, Hemoglobin 12.0L, Lymphocytes # (Auto) 0.5L, Lymphocytes (%) (Auto) 16, Mean Corpuscular Hemoglobin 34, Mean Corpuscular Hemoglobin Concent 34, Mean Corpuscular Volume 100H, Mean Platelet Volume 11.0H, Monocytes # (Auto) 0.4, Monocytes (%) (Auto) 12, Neutrophils # (Auto) 2.2, Neutrophils (%) (Auto) 69, Platelet Count 88L, Potassium Level 3.7, Red Blood Count 3.56L, Red Cell Distribution Width 13.1, Sodium Level 142, Total Bilirubin 0.7, Total Protein 5.2L, White Blood Count 3.2L 04/22/16 04:25: Alanine Aminotransferase (ALT/SGPT) 25, Albumin 3.2, Alkaline Phosphatase 52, Anion Gap 10, Aspartate Amino Transf (AST/SGOT) 19, BUN/Creatinine Ratio 7, Basophils # (Auto) 0.0, Basophils (%) (Auto) 0, Blood Urea Nitrogen 6L, Calcium Level 8.6, Carbon Dioxide Level 22, Chloride Level 110H, Creatinine 0.83, Eosinophils # (Auto) 0.1, Eosinophils (%) (Auto) 3, Estimat Glomerular Filtration Rate > 60, Glucose Level 102, Hematocrit 37L, Hemoglobin 12.2L, Lymphocytes # (Auto) 0.8L, Lymphocytes (%) (Auto) 29, Mean Corpuscular Hemoglobin 33, Mean Corpuscular Hemoglobin Concent 33, Mean Corpuscular Volume 100H, Mean Platelet Volume 10.9H, Monocytes # (Auto) 0.2, Monocytes (%) (Auto) 8 , Neutrophils # (Auto) 1.7L, Neutrophils (%) (Auto) 60, Platelet Count 101L, Potassium Level 3.8, Red Blood Count 3.69L, Red Cell Distribution Width 13.0, Sodium Level 142, Total Bilirubin 0.5, Total Protein 5.5L, White Blood Count 2.8L Microbiology 04/19/16 Blood Culture - Final, Complete No growth 04/19/16 Influenza Types A,B Antigen (JAMAAL) - Final, Complete Laboratory Tests 04/19/16 05:49 04/20/16 05:36 04/21/16 04:20 04/22/16 04:25 Pending Labs Microbiology Date/Time Source Procedure Growth Status 04/19/16 08:14 Peripheral Right Wrist Blood Culture - Final No growth Complete 04/19/16 08:04 Peripheral Rt Ac Blood Culture - Preliminary Positive; See Report Resulted 04/19/16 05:38 Nasal Aspirate Influenza Types A,B Antigen (JAMAAL) - Final Complete Laboratory Tests 04/19/16 05:49: Alanine Aminotransferase (ALT/SGPT) 26, Albumin 4.3, Alkaline Phosphatase 54, Anion Gap 14, Aspartate Amino Transf (AST/SGOT) 23, BUN/Creatinine Ratio 23, Basophils # (Auto) 0.0, Basophils (%) (Auto) 0, Blood Urea Nitrogen 21, Calcium Level 9.3, Carbon Dioxide Level 18, Chloride Level 108, Creatinine 0.91, Eosinophils # (Auto) 0.0, Eosinophils (%) (Auto) 1, Estimat Glomerular Filtration Rate > 60, Glucose Level 98, Hematocrit 45, Hemoglobin 15.8, Lipase 20, Lymphocytes # (Auto) 0.5, Lymphocytes (%) (Auto) 16, Mean Corpuscular Hemoglobin 34, Mean Corpuscular Hemoglobin Concent 35, Mean Corpuscular Volume 96, Mean Platelet Volume 10.0, Monocytes # (Auto) 0.0, Monocytes (%) (Auto) 1, Neutrophils # (Auto) 2.4, Neutrophils (%) (Auto) 82, Platelet Count 163, Potassium Level 4.0, Red Blood Count 4.72, Red Cell Distribution Width 12.6, Sodium Level 140, Total Bilirubin 1.1, Total Protein 7.2, White Blood Count 2.9 04/19/16 08:04: Lactic Acid Level 1.23 04/19/16 08:50: Urine Bacteria NEGATIVE, Urine Bilirubin NEGATIVE, Urine Casts PRESENT, Urine Clarity VERY CLOUDY, Urine Color YELLOW, Urine Crystals NONE, Urine Culture Indicated NO, Urine Glucose (UA) NEGATIVE, Urine Hyaline Casts 5-10, Urine Ketones 2+, Urine Leukocyte Esterase NEGATIVE, Urine Mucus SMALL, Urine Nitrite NEGATIVE, Urine Protein 2+, Urine RBC 2-5, Urine RBC (Auto) 3+, Urine Specific [place] 1.015, Urine Urobilinogen NORMAL, Urine WBC NONE, Urine pH 5 04/20/16 05:36: Alanine Aminotransferase (ALT/SGPT) 24, Albumin 3.7, Alkaline Phosphatase 42, Anion Gap 10, Aspartate Amino Transf (AST/SGOT) 24, BUN/Creatinine Ratio 14, Basophils # (Auto) 0.0, Basophils (%) (Auto) 0, Blood Urea Nitrogen 12, Calcium Level 8.6, Carbon Dioxide Level 19, Chloride Level 111, Creatinine 0.84, Eosinophils # (Auto) 0.0, Eosinophils (%) (Auto) 0, Estimat Glomerular Filtration Rate > 60, Glucose Level 112, Hematocrit 40, Hemoglobin 13.8, Lymphocytes # (Auto) 0.3, Lymphocytes (%) (Auto) 3, Mean Corpuscular Hemoglobin 34, Mean Corpuscular Hemoglobin Concent 35, Mean Corpuscular Volume 98, Mean Platelet Volume 10.2, Monocytes # (Auto) 0.5, Monocytes (%) (Auto) 6, Neutrophils # (Auto) 7.3, Neutrophils (%) (Auto) 91, Platelet Count 122, Potassium Level 3.8, Red Blood Count 4.07, Red Cell Distribution Width 13.0, Sodium Level 140, Total Bilirubin 1.5, Total Protein 6.1, White Blood Count 8.0 , Lactic Acid Level 0.75, Band Neutrophils 12, Basophils % (Manual) 0, Blood Morphology Comment NORMAL, Eosinophils % (Manual) 2, Lymphocytes % (Manual) 1, Monocytes % (Manual) 5, Neutrophils % (Manual) 80 04/21/16 04:20: Alanine Aminotransferase (ALT/SGPT) 20, Albumin 3.1, Alkaline Phosphatase 37, Anion Gap 9, Aspartate Amino Transf (AST/SGOT) 17, BUN/Creatinine Ratio 6, Basophils # (Auto) 0.0, Basophils (%) (Auto) 0, Blood Urea Nitrogen 5, Calcium Level 8.1, Carbon Dioxide Level 21, Chloride Level 112, Creatinine 0.81, Eosinophils # (Auto) 0.1, Eosinophils (%) (Auto) 3, Estimat Glomerular Filtration Rate > 60, Glucose Level 109, Hematocrit 36, Hemoglobin 12.0, Lymphocytes # (Auto) 0.5, Lymphocytes (%) (Auto) 16, Mean Corpuscular Hemoglobin 34, Mean Corpuscular Hemoglobin Concent 34, Mean Corpuscular Volume 100, Mean Platelet Volume 11.0, Monocytes # (Auto) 0.4, Monocytes (%) (Auto) 12 , Neutrophils # (Auto) 2.2, Neutrophils (%) (Auto) 69, Platelet Count 88, Potassium Level 3.7, Red Blood Count 3.56, Red Cell Distribution Width 13.1, Sodium Level 142, Total Bilirubin 0.7, Total Protein 5.2, White Blood Count 3.2 04/22/16 04:25: Alanine Aminotransferase (ALT/SGPT) 25, Albumin 3.2, Alkaline Phosphatase 52, Anion Gap 10, Aspartate Amino Transf (AST/SGOT) 19, BUN/Creatinine Ratio 7, Basophils # (Auto) 0.0, Basophils (%) (Auto) 0, Blood Urea Nitrogen 6, Calcium Level 8.6, Carbon Dioxide Level 22, Chloride Level 110, Creatinine 0.83, Eosinophils # (Auto) 0.1, Eosinophils (%) (Auto) 3, Estimat Glomerular Filtration Rate > 60, Glucose Level 102, Hematocrit 37, Hemoglobin 12.2, Lymphocytes # (Auto) 0.8, Lymphocytes (%) (Auto) 29, Mean Corpuscular Hemoglobin 33, Mean Corpuscular Hemoglobin Concent 33, Mean Corpuscular Volume 100, Mean Platelet Volume 10.9, Monocytes # (Auto) 0.2, Monocytes (%) (Auto) 8, Neutrophils # (Auto) 1.7, Neutrophils (%) (Auto) 60, Platelet Count 101, Potassium Level 3.8, Red Blood Count 3.69, Red Cell Distribution Width 13.0, Sodium Level 142, Total Bilirubin 0.5, Total Protein 5.5, White Blood Count 2.8 Radiology Reviewed CAT scan of abdomen and pelvis proximal sigmoid colon acute diverticulitis Discussion & Recommendations patient on discharge felt much better. Having no abdominal pain. Taking fluids. is eating. And having bowel movements Discharge Home Medications: Active Scripts Active Flagyl (Metronidazole) 500 Mg Tablet 500 Mg PO TID Cipro (Ciprofloxacin HCl) 500 Mg Tablet 500 Mg PO BID Instructions to patient/family Please see electonic discharge instructions given to patient. Clinical Quality Measures DVT/VTE Risk/Contraindication: Risk Factor Score Per Nursin RFS Level Per Nursing on Admit: 2=Moderate DIONICIO GALVAN DO Apr 27, 2016 07:24
== END 2016-04-22 17:10 | disposition home or self-care (01) | DRG 392 ==
LOC: EDUNIT# 05:21 → ER 05:27 → 4TH 09:35
PROVIDERS: ADMIT Family Medicine; ATTEND Family Medicine
DX: K57.32 Diverticulitis of large intestine without perforation or abscess without bleeding (principal); Z87.891 Personal history of nicotine dependence; D69.6 Thrombocytopenia, unspecified
CPT/HCPCS: 36415; 74177; 80053; 81000; 83605; 83690; 85007; 85025; 85027; 87040; 87804; 96361; 96365; 96375

== ENCOUNTER → 2016-04-24 | Outpatient (CLI) | payer OTHER ==
[~2016-04-24] MED LIST: CIPR-225 PO; METR500T PO
[2016-04-24 07:10] LABS: BASOPHILS % (AUTO) 1 % (0-10); EOSINOPHILS # (AUTO) 0.1 10^3/uL (0.0-0.3); EOSINOPHILS % (AUTO) 2 % (0-10); LYMPHOCYTES # (AUTO) 1.6 X 10^3 (1.0-4.0); LYMPHOCYTES % (AUTO) 27 % (12-44); MEAN CORPUSCULAR HEMOGLOBIN 33 PG (25-34); MEAN CORPUSCULAR HGB CONC 34 G/DL (32-36); MEAN CORPUSCULAR VOLUME 97 FL (80-99); MEAN PLATELET VOLUME 9.9 FL (7.4-10.4); MONOCYTES # (AUTO) 0.5 X 10^3 (0.0-1.0); MONOCYTES % (AUTO) 8 % (0-12); NEUTROPHILS # (AUTO) 3.7 X 10^3 (1.8-7.8); NEUTROPHILS % (AUTO) 63 % (42-75); PLATELET COUNT 172 10^3/uL (130-400); RED BLOOD COUNT 4.58 10^6/uL (4.35-5.85); RED CELL DISTRIBUTION WIDTH 12.5 % (10.0-14.5); WHITE BLOOD COUNT 5.8 10^3/uL (4.3-11.0)
== END ==
LOC: LAB 06:52
PROVIDERS: ATTEND Family Medicine
DX: D69.6 Thrombocytopenia, unspecified (principal); D72.819 Decreased white blood cell count, unspecified
CPT/HCPCS: 36415; 85025

== ENCOUNTER 2020-06-10 02:58 | Emergency (ER) | payer OTHER ==
[~2020-06-10] VITALS: Ht 195 cm; Wt 159.0 kg
[2020-06-10] MEDS ORDERED: FAMOTIDINE 20MG/2ML IV (PEPCID) IVP ONE (03:30)
[2020-06-10] MEDS ORDERED: diphenhydrAMINE 50 MG/ML INJ (BENADRYL) IVP ONE (03:30)
[2020-06-10] MEDS ORDERED: methylPREDNISolone 125 MG (Solu-MEDROL) VIAL IVP ONE (03:30)
[2020-06-10] MEDS ORDERED: FAMO-119 PO (04:55)
[2020-06-10] MEDS ORDERED: PRD20T PO (04:55)
--- NOTE | 2020-06-10 04:55 | ED General ---
General Chief Complaint: Allergic Reaction Stated Complaint: ALLERGIC REACTION Nursing Triage Note: Patient states that he has been experiencing an allergy to something x 3 months and he cannot figure out what it causing it. Patient has a generalized reaction-hives. Nursing Sepsis Screen: No Definite Risk Source of Information: Patient Exam Limitations: No Limitations History of Present Illness Date Seen by Provider: Jun 10, 2020 Time Seen by Provider: 03:10 Initial Comments This 55-year-old gentleman presents to the emergency room with complaint of rather diffuse hives. He does not know what is causing them. He did spend some time working outside to this evening and woke in the night with these hives. He has not treated them yet. He has had multiple reactions similar to this in the past 3 months. He has not been able to identify a trigger. He denies any known new exposures. Antihistamines and steroids have been helpful in the past. Early on a lesser rash was thought to be scabies but did not respond to permethrin. Patient denies swelling of the tongue, lips, or throat or difficulty with breathing. Allergies and Home Medications Allergies Coded Allergies: No Known Drug Allergies (Unverified , 04/19/16) Home Medications Ciprofloxacin HCl 500 Mg Tablet, 500 MG PO BID Prescribed by: JANELLE RYAN on 04/22/16 1349 Famotidine 20 Mg Tablet, 20 MG PO BID Prescribed by: SIOMARA GARCIA on 06/10/20 0455 Metronidazole 500 Mg Tablet, 500 MG PO TID Prescribed by: JANELLE RYAN on 04/22/16 1349 Prednisone 20 Mg Tab, 20 MG PO BID Prescribed by: SIOMARA GARCIA on 06/10/20 0455 Patient Home Medication List Home Medication List Reviewed: Yes Review of Systems Review of Systems Constitutional: no symptoms reported EENTM: no symptoms reported Respiratory: no symptoms reported Cardiovascular: no symptoms reported Gastrointestinal: no symptoms reported Genitourinary: no symptoms reported Skin: see HPI Psychiatric/Neurological: No Symptoms Reported Hematologic/Lymphatic: No Symptoms Reported Immunological/Allergic: see HPI Past [id number] Hx Past Med/Social Hx: Reviewed Nursing Past Med/Soc Hx Patient Social History Alcohol Use: Denies Use Smoking Status: Former Smoker Type Used: Cigarettes Former Smoker, Quit: Apr 19, 2006 2nd Hand Smoke Exposure: No Recent Infectious Disease Expo: No Recent Hopitalizations: No Immunizations Up To Date PED Vaccines UTD: No Date of Influenza Vaccine: Dec 17, 2015 Seasonal Allergies Seasonal Allergies: No Past Medical History Surgeries: Yes Respiratory: No Currently Using CPAP: No Currently Using BIPAP: No Cardiac: No Neurological: No Reproductive Disorders: No Sexually Transmitted Disease: No HIV/AIDS: No Genitourinary: No Gastrointestinal: No Musculoskeletal: No Endocrine: No HEENT: No Cancer: No Psychosocial: No Integumentary: No Blood Disorders: No Family Medical History Cardiovascular disease G8 BROTHER Diabetes mellitus 19 MOTHER FH: liver cancer 19 FATHER Hypertension G8 BROTHER LIVER CAN Hypertension Physical Exam Vital Signs Vital Signs - First Documented 06/10/20 03:39 Temp 36.1 Pulse 86 Resp 16 B/P (MAP) 158/90 (112) Pulse Ox 98 O2 Delivery Room Air Capillary Refill : Less Than 3 Seconds Height, Weight, BMI Height: 6'5.00" Weight: 374lbs. 5.0oz. [id number]; 41.00 BMI Method:Stated General Appearance: No Apparent Distress, WD/WN HEENT: PERRL/EOMI, Normal ENT Inspection, Pharynx Normal, Other (No lip or tongue swelling) Neck: Normal Inspection Respiratory: Lungs Clear, Normal Breath Sounds Cardiovascular: Regular Rate, Rhythm, No Edema Extremity: Normal Inspection, No Pedal Edema Neurologic/Psychiatric: Alert, Oriented x3 Skin: Warm/Dry, Rash (Diffuse hives on the extremities trunk, and neck) Progress/Results/Core Measures Suspected Sepsis Recent Fever Within 48 Hours: No Infection Criteria Present: None New/Unexplained Altered Menta: No Sepsis Screen: No Definite Risk SIRS Temperature: Pulse: 86 Respiratory Rate: 16 Blood Pressure 158 /90 Mean: 112 Results/Orders My Orders Orders - SIOMARA FITZPATRICK MD Ed Iv/Invasive Line Start (06/10/20 03:17) Famotidine Injection (Pepcid Injection) (06/10/20 03:30) Diphenhydramine Injection (Benadryl Inje (06/10/20 03:30) Methylprednisolone Sod Succ (Solu-Medrol (06/10/20 03:30) Medications Given in ED Vital Signs/I&O 06/10/20 06/10/20 03:39 04:57 Temp 36.1 Pulse 86 78 Resp 16 14 B/P (MAP) 158/90 (112) 158/90 Pulse Ox 98 98 O2 Delivery Room Air Room Air Capillary Refill : Less Than 3 Seconds Blood Pressure Mean: 112 Progress Note : Progress Note Patient was treated with Pepcid, Solu-Medrol, and Benadryl by IV route. He was monitored for 90 minutes. There was no improvement in the hives but he did not worsen. See discharge instructions for more discussion. He appeared cardiovascularly stable for discharge. Departure Impression Primary Impression: Hives Disposition: 01 HOME, SELF-CARE Condition: Improved Departure-Patient Inst. Decision time for Depature: 04:51 Referrals: DIONICIO GALVAN DO (PCP/Family) Primary Care Physician Patient Instructions: Hives (DC) Add. Discharge Instructions: Take a Claritin when you return home. The cause of your hives is uncertain at this time. Please keep a log of your exposures, activities, and foods when you experience hives. Finding a common denominator amongst episodes may help you identify the cause. Follow-up with your primary care provider soon as possible and seek a referral to an gear design engineer. When you have rebounding symptoms, take Benadryl (diphenhydramine) up to 50 mg every 4 hours as needed. You may additionally take an nondrowsy antihistamine such as Claritin daily. Pepcid (famotidine) 20 mg twice daily may also be used in addition to the other antihistamines. Return to the emergency room or call 911 if you have worsening symptoms that include difficulty breathing or swelling of the lips, tongue, or throat. Call with questions or concerns. All discharge instructions reviewed with patient and/or family. Voiced understanding. Scripts Famotidine (Pepcid) 20 Mg Tablet 20 MG PO BID, #14 TAB Prov: SIOMARA FITZPATRICK MD 06/10/20 Prednisone (Prednisone) 20 Mg Tab 20 MG PO BID, #6 TAB 0 Refills Prov: SIOMARA FITZPATRICK MD 06/10/20 Copy Copies To 1: DIONICIO GALVAN JOSHUA T MD Jun 10, 2020 04:55
[2020-06-10 04:57] VITALS: BP 158/90
== END 2020-06-10 05:05 | disposition home or self-care (01) ==
LOC: EDUNIT# 02:58 → ER 03:00
DX: L50.9 Urticaria, unspecified (principal); Z87.891 Personal history of nicotine dependence; Z79.52 Long term (current) use of systemic steroids